=== PATIENT | male | born 1980 | race Caucasian/White ===

== ENCOUNTER 2017-11-13 04:54 | Emergency (ER) | payer BC, OTHER ==
[~2017-11-13] VITALS: Ht 193 cm; Wt 117.9 kg
[2017-11-13 05:05] VITALS: BP_SYST 131
[2017-11-13 08:30] VITALS: BP_SYST 129
== END 2017-11-13 08:30 | disposition home or self-care (01) ==
LOC: SED 04:54
DX: S01.03XA Puncture wound without foreign body of scalp, initial encounter (principal); W18.2XXA Fall in (into) shower or empty bathtub, initial encounter; Y93.E1 Activity, personal bathing and showering; Y92.091 Bathroom in other non-institutional residence as the place of occurrence of the external cause; Y99.8 Other external cause status
CPT/HCPCS: 70450-TC; 99284